=== PATIENT | male | born 1955 | race Caucasian/White ===

== ENCOUNTER 2017-01-18 15:30 | Observation (INO) | payer SELFPAY ==
[~2017-01-18] VITALS: Ht 182.9 cm; Wt 80.6 kg
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
--- NOTE | ~2017-01-18 | ECHO ---
Transthoracic Echocardiography Report (TTE) Demographics Patient Name SHOSHANA HARRIS Date of Study 01/19/2017 Patient Number [id number] Visit Number [id number] Date of 1955 Room Number G6331 Accession Number [id number] Gender Male Age 61 year(s) Referring Alyssa Farley MD Powerhouse Attendant Ezekiel Mcdonald RVT, Physician MACK Physician Interpreting Bradly Hernandez Family Psychologist Physician Supervising Ordering Physician Bradly Hernandez MD/RAHEEL MARKS Nurse Stress Precipitate Washer Conclusions Contractility Score Summary Normal Left Ventricular contractility was noted. Summary Technically difficult parasternal imaging. Normal LV/RV size and systolic function. The estimated left ventricular ejection fraction is 55-60%. Mild concentric left ventricular hypertrophy. Diastolic flow assessment reveals a pseudonormal pattern consistent with Grade II diastolic dysfunction . No significant valvular abnormalities. No evidence of pericardial effusion. Procedure Type of Study TTE procedure:2D Echocardiogram. Procedure Date Date: 01/19/2017 Start: 06:44 AM Study Location: Inpatient Portable Technical Quality: Adequate visualization Indications:Ventricular Tachycardia. Appropriate Use Criteria: 8 Patient Status: Routine Rhythm: Sinus bradycardia HR: 51 bpm BP: 110/57 mmHg Allergies - No known allergies. M-Mode/2D Measurements LV Diastolic Dimension: 4.93 cm LV Systolic Dimension: 3.51 cm LV Septum Diastolic: 1.17 cm LV PW Diastolic: 1.14 cm AO Root Dimension: 2.8 cm Cardiac Output: 4.8 l/min AV Cusp Separation: 2 cm RV Diastolic Dimension: 3.05 cm LA volume: 53 ml LVOT: 2.1 cm RV Base: 3.77 cm LVOT VTI: 27.2 cm RV Mid: 2.45 cm LV Stroke volume: 94.16 ml TAPSE: 3.05 cm TDI-S': 13.4 cm/s Doppler Measurements AV Peak Velocity: 1.39 m/s MV Peak E-Wave: 0.77 m/s AV Peak Gradient: 7.73 mmHg MV Peak A-Wave: 0.5 m/s AV Mean Gradient: 5 mmHg MV E/A Ratio: 1.54 LVOT Peak Velocity: 1.23 m/s MV P1/2t: 70 msec TR Gradient:22.85 mmHg PV Peak Velocity: 0.96 m/s Estimated RAP:5 mmHg PV Peak Gradient: 3.71 mmHg Estimated RVSP: 28 mmHg Estimated PASP: 27.85 mmHg E' Septal Velocity: 0.08 m/s A' Septal Velocity: 0.08 m/s E' Lateral Velocity: 0.14 m/s A' Lateral Velocity: 0.08 m/s Findings Left Ventricle Mild concentric left ventricular hypertrophy. Diastolic assessment reveals Grade II pseudonormal diastolic function . Right Ventricle Normal right ventricle structure and function. Left Atrium Normal left atrial size. There is no evidence of patent foramen ovale or atrial septal defect by color Doppler. Right Atrium Normal right atrial size. IVC measures 2.11 cm with inspiratory collapse. Mitral Valve Normal mitral valve structure and function. Trivial mitral regurgitation by color Doppler. Aortic Valve Normal aortic valve structure and function. Tricuspid Valve Mild tricuspid regurgitation by color Doppler. Pulmonic Valve The pulmonic valve is not well visualized. Pericardial Effusion No evidence of pericardial effusion. Miscellaneous Visualized portions of the aortic root and ascending aorta appear normal in size. Pleural Effusion No evidence of pleural effusion. Contractility Score LV regional wall motion:(0-Non visualized 1-Normal 2-Hypokinesis 3-Akinesis 4-Dyskinesis 5-Aneurysm) Signature dtt: EFREN KIM dtd: 01/19/17 0644 Physician Self Edit
--- NOTE | ~2017-01-18 | CATH ---
Cardiac Diagnostic Report Demographics Patient Name STEVEN ANNA Gender Male Date of 1955 Age 61 year(s) Patient Number [id number] Date of Study 01/18/2017 Visit Number [id number] Room Number G[address] [place] [id number] Ht 182.88 cm Wt 73 kg Referring [facility] Primary Physician Physician Mary MARKS Performing [facility] Secondary Physician Physician Mary MARKS Diagnostic [facility] Assisting Physician Physician Mary MARKS Interventional Physician Grounds Caretaker Physician Findings and Conclusions Diagnostic Findings and Conclusion Severe mid LAD bridging. Diagnostic Recommendations Start Metoprolol 25 mg PO BID with holding parameters 2D Echo in am Replace magnesium keep > or equal to 2 mgs/dL. Procedure Description The patient was brought to the diagnostic cardiac catheterization-EP laboratory in the fasting, non-sedated state. Informed consent was obtained in the written and verbal form after the risks and benefits were explained. The patient had no further questions and agreed to proceed. The planned puncture-incision site(s) were shaved and prepped with ChloraPrep and draped in the usual sterile manner. Conscious sedation, supplemental oxygen, and pain control medications were delivered by a registered nurse under physician guidance. Surface ECG rhythm, blood pressure measurement, and pulse oximetry were monitored throughout the procedure. Arterial access. The access site was infiltrated with lidocaine. The vessel was entered with the Seldinger technique. A sheath was advanced into the vessel and used for catheter placement. Selective left coronary angiography. A catheter was advanced into the left coronary vessel ostium under Fluoroscopic guidance. Contrast was injected by hand. Images were obtained in multiple projections. Selective right coronary angiography. A catheter was advanced into the right coronary vessel ostium under fluoroscopic guidance. Contrast was injected by hand. Images were obtained in multiple projections. Left heart catheterization. A catheter was advanced across the aortic valve to the left ventricle under fluoroscopic guidance. Resting hemodynamics were obtained. Arterial artery hemostasis was achieved. The patient was transferred to a regular nursing floor via cart accompanied by a nurse. The patient left the laboratory in stable condition. Diagnostic Cath Status: Emergency Procedure Procedure Type Diagnostic procedure:Angiography:, Coronary Angios w/[facility] Indications: Non-sustained VTach. The procedure was explained in detail to the patient. Risks, complications and alternative treatments were reviewed. Written consent was obtained. Medications Reviewed with Patient prior to Procedure. Angiographic Findings Dominance: Right Cardiac Arteries and Lesion Findings LMCA: Normal (0% Stenosis). LAD: Abnormal.severe mid lad bridge Diag WNL LCx: Normal (0% Stenosis). RCA: Normal (0% Stenosis). Procedure Data Procedure Date Date: 01/18/2017Start: 03:59 PMEnd: 04:20 PM Entry Locations - Retrograde Percutaneous access was performed through the Right Radial artery (Primary location). A 6 Fr sheath was inserted. Closure Comments: r band applied by Omkar wilburn 13 cc air in band. Procedure Medications Order and Administration + + +-------+ + !Time !Medication !Dosage !Route ! + + +-------+ + !01/18/2017 03:50 PM !0.9% NaCl !100 ml !I.V. drip ! + + +-------+ + !01/18/2017 04:00 PM !Versed !1 mg !I.V. ! + + +-------+ + !01/18/2017 04:03 PM !Radial Verapamil !2.5 mg !I.A. ! + + +-------+ + Devices Used - A5 Fr. BS JR 4 Diag. Catheterwas used for:Right coronary angiography. - A5 Fr. BS JL 3.5 Diag. Catheterwas used for:Left coronary angiography. Contrast Material - Isovue 71109 ml Fluoroscopy Time: Diagnostic: 1:54 minutes. Total: 1:54 minutes. Fluoroscopy Dose: Diagnostic: 450 mGy. Total: 450 mGy. Estimated Blood Loss: 10 ml. Medical History Allergies - No known allergies. Risk Factors The patient risk factors include:last creatinine: 1.1 mg/dl, creatinine clearance: 73.74 ml/min and Current/Recent(w/in 1 year) tobacco use. Admission Data Admission Date: 01/18/2017 Admission Time: 03:38 PM Admit Source: [facility] Insurance Payors: None. Clinical Evaluation Leading to Procedure - The patient's CAD presentation was assessed as: Unstable angina. - The patient's anginal syndrome during the past two weeks was assessed as: Class IV according to the [place] [employer] Classification System (CCS). Hemodynamics Condition: Rest O2 Consumption: Estimated: 217.25Heart Rate: 55 bpm Pressures (mmHg) + + + !Site !Pressure ! + + + !LV !109/-2 ,4 ! + + + !LV !90/49 ,7 ! + + + Shunts Oxygen Values O2 Capacity 204 O2 Consumption 217.25 Signatures dtt: MARY KIM dtd: 01/18/17 1559 Physician Self Edit
--- NOTE | 2017-01-18 18:28 | NUR ---
D:Patient recieved from pathology laboratory technologist per bed. He has R band to right wrist. Is alert and oreintated. Denies any pain. No interventions done. Has NS infusing at 100 ml/hr. Voided 600 ml in pathology laboratory technologist. Is on room air. Patient recieved at 1625. report called at 1615. P:Monitor post cath
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
[2017-01-19 05:03] LABS: ALBUMIN 3.3 gm/dL (3.5-5.0); ANION GAP 8.3 (10.0-19.0); BLOOD UREA NITROGEN 16 mg/dL (6-24); CHLORIDE 113 mMol/L (96-110); CO2 24 mMol/L (22-32); CREATININE 0.8 mg/dL (0.6-1.3); ESTIMATED GFR (MDRD EQUATION) > 60; MAGNESIUM 2.5 mg/dL (1.8-2.6); PHOSPHORUS 3.1 mg/dL (2.5-4.9); POTASSIUM 4.3 mMol/L (3.7-5.1); SODIUM 141 mMol/L (135-145)
--- NOTE | 2017-01-19 05:25 | NUR ---
A/O. HR 40-50s. SBP 90-110s. LOPRESSOR GIVEN AT HS VITALS WITHIN PARAMETERS. ROOM AIR. DENIES PAIN. SBA TO BATHROOM. R) WRIST SOFT NONTENDER. PLAN FOR POSSIBLE DISMISSAL TODAY.
[2017-01-19] MEDS ORDERED: LIPITOR20 M1 PO (11:34)
[2017-01-19] MEDS ORDERED: TOPROL XL25 MG PO (11:35)
--- NOTE | 2017-01-19 12:19 | NUR ---
Discharge Summary: Patient A/O x 3. Up independently. Vital signs stable: HR 45 in sinus bradycardia, BP 116/65, RR 16, O2 saturation 96% on room air, temperature 98.0F, and denies pain or shortness of breath. Asymptomatic with bradycardia and MD's aware. Right radial heart catheterization site clean/dry/intact with bandaid present and CSM WNL. Discharge instructions included: new medications, signs/symptoms to be alert for, post right radial heart cath cares, how to check heart rate and blood pressure, and establishing a primary healthcare provider. Also provided him with Dr. Young and Dr. Mares's cards, as patient is from [place]. Patient and family verbalize understanding of all teaching and state they have no further questions. Patient left PCU at 1205 to [facility] entrance and then home to self care with family. No needs at time of discharge. Lynda RN 01/19/17
== END 2017-01-19 12:05 | disposition disaster alternative care site (69) ==
LOC: EDSTATUS 15:30 → GPCU 15:30
PROVIDERS: ADMIT Internal Medicine
PROC: 4A023N7 Measurement of Cardiac Sampling and Pressure, Left Heart, Percutaneous Approach (ICD-10-PCS; principal; 2017-01-18)
DX: I20.0 Unstable angina (principal); Q24.5 Malformation of coronary vessels; E83.42 Hypomagnesemia; I47.2 Ventricular tachycardia; E78.00 Pure hypercholesterolemia, unspecified; F17.210 Nicotine dependence, cigarettes, uncomplicated; Z98.890 Other specified postprocedural states
CPT/HCPCS: G0378; J1644; J2250; J3010; J3475; J7030